=== PATIENT | female | born 1965 | race Two or more races ===

== ENCOUNTER 2021-02-25 08:47 | Outpatient (CLI) | payer OTHER ==
[2021-03-02] MEDS ORDERED: HYDROCODONE/APAP 5/325MG TABLET ONE (13:36)
== END 2021-02-25 23:59 | disposition home or self-care (01) ==
LOC: LAB 08:47
PROVIDERS: ATTEND Specialist
DX: Z01.812 Encounter for preprocedural laboratory examination (principal); Z20.822 Contact with and (suspected) exposure to COVID-19
CPT/HCPCS: C9803; U0003

== ENCOUNTER 2021-03-02 08:32 | Day surgery (SDC) | payer OTHER ==
[2021-03-02] MEDS ORDERED: LIDOCAINE HCL/PF 1% 30 ML SDV ONE (08:48)
[2021-03-02] MEDS ORDERED: EPINEPHRINE (1:1000) 1 MG/ML AMPUL ONE (08:48)
[2021-03-02] MEDS ORDERED: methylPREDNISolone ACETATE 80 MG/ML VIAL ONE (08:49)
[2021-03-02] MEDS ORDERED: ROCURONIUM BROMIDE 50 MG/5 ML ONE (09:54)
[2021-03-02] MEDS ORDERED: MIDAZOLAM HCL 2 MG/2ML VIAL ONE (09:54)
[2021-03-02] MEDS ORDERED: HYDROMORPHONE INJ 2 MG/ML DISP.SYRIN ONE (09:54)
[2021-03-02] MEDS ORDERED: FENTANYL PF 100MCG/2ML AMPUL ONE (12:46)
== END 2021-03-02 14:00 | disposition home or self-care (01) ==
LOC: DS 08:32
PROVIDERS: ATTEND Specialist
DX: M75.41 Impingement syndrome of right shoulder (principal); M65.811 Other synovitis and tenosynovitis, right shoulder; Z88.8 Allergy status to other drugs, medicaments and biological substances; I10 Essential (primary) hypertension; Z79.899 Other long term (current) drug therapy
CPT/HCPCS: 29822; 29826; 84703; A4217; J0171; J0690; J1040; J1100; J2250; J2405; J2704; J3010; J3490 ×3; J1170